=== PATIENT | male | born 1980 | race Caucasian/White ===

== ENCOUNTER → 2016-03-16 | Outpatient (CLI) | payer BC, OTHER ==
[~2016-03-16] MED LIST: FLUT0.15 NAE; OXYC-57 PO
--- NOTE | 2016-03-16 09:14 | DIAGNOSTIC IMAGING REPORT ---
CERVICAL SPINE MRI HISTORY: NECK PAIN, NECK STRAIN TECHNIQUE: Multiplanar multisequence MRI of the cervical spine was performed without the use of contrast. COMPARISON STUDY: Cervical spine CT 01/08/2016. FINDINGS: Straightening of the cervical spine. Alignment is intact. Mild disc space narrowing at C5-C6. Prevertebral soft tissues and the C1-C2 interval are maintained. Prevertebral and paraspinal soft tissues are within normal limits. Visualized posterior fossa is unremarkable. The cervical spine cord is normal in course, caliber, and signal intensity. No fractures within the cervical spine. C2-C3: No significant central canal or neural foraminal narrowing. C3-C4: No significant central canal or neural foraminal narrowing. C4-C5: No significant central canal or neural foraminal narrowing. C5-C6: Small broad-based posterior disc bulge without significant central canal or left-sided neural foraminal narrowing. There is moderate right-sided neural foraminal narrowing. C6-C7: No significant central canal or neural foraminal narrowing. C7-T1: No significant central canal or neural foraminal narrowing. IMPRESSION: 1. No acute abnormality within the cervical spine. No acute fracture or subluxation. 2. Prevertebral and paraspinal soft tissues are within normal limits. 3. Small broad-based posterior disc bulge at C5-C6 resulting in moderate right-sided neural foraminal narrowing. Electronically signed by: Tree Cohen M.D. 03/16/2016 9:12 AM Dictated Date/Time: 03/16/2016 9:05 AM
== END | disposition home or self-care (01) ==
LOC: C.MRIBC 08:11
PROVIDERS: ATTEND Orthopaedic Surgery Orthopaedic Surgery of the Spine
DX: M54.2 Cervicalgia (principal); S13.9XXD Sprain of joints and ligaments of unspecified parts of neck, subsequent encounter; X58.XXXD Exposure to other specified factors, subsequent encounter